=== PATIENT | male | born 1990 | race Two or more races ===

== ENCOUNTER 2017-02-02 17:52 | Emergency (ER) | payer MEDICAID ==
[2017-02-02 18:03] VITALS: BP 126/66; PULSE 58; RESP 18; TEMP 99; O2SAT 96
[2017-02-02] MEDS ORDERED: IBUPROFEN 200 MG TAB PO ONE (18:32)
--- NOTE | 2017-02-02 18:34 | UCPHY ---
H & P Time Seen by Provider: 02/02/17 18:25 Patient Type: Established HPI/ROS: This patient reports left lower tooth pain to the back the mandible the steadily increased to the day to current 7/10 in intensity. He has not taken any medications for this prior to arrival. He reports is difficult to chew since the onset of the symptoms. No other associated symptoms. He is accompanied by his mother today. ROS: No fevers or chills. No other constitutional symptoms. No recent dental procedures. HEENT: No generalized headache. He denies any stiff neck. Neuro: No confusion. GI: No vomiting. 7 point ROS is otherwise negative. Past Medical/Surgical History: Psychiatric Smoking Status: Former smoker Physical Exam: Physical Exam Vital signs are normal. General: No acute distress HEENT: Atraumatic. There is very slight left cheek swelling adjacent to the affected area intraoral exam is notable for an impacted wisdom tooth that is starting to arrived in the left lower mandible with gingival swelling and trace purulent discharge with compression to the swollen gingiva but no inocente fluctuance is obvious. No submental swelling. No other abnormal intraoral findings are present. He maintains a Mallampati 1 airway. No dysphonia. Neck: Supple with no meningismus Eyes: Pupils equal and react to light. Extraocular motions are intact. Lungs: No respiratory distress. Cardiac: Brisk capillary refill is intact throughout. Skin: No rash or pallor. Neuro: Alert and oriented x3 with no sensorimotor deficits. Initial differential diagnosis: Infected wisdom tooth, dental abscess Constitutional: Initial Vital Signs Temperature (C) 37.2 C 02/02/17 17:59 Heart Rate 58 L 02/02/17 17:59 Respiratory Rate 18 02/02/17 17:59 Blood Pressure 126/66 H 02/02/17 17:59 O2 Sat (%) 96 02/02/17 17:59 O2 Delivery Mode Room Air Allergies/Adverse Reactions: No Known Allergies Allergy (Unverified 04/07/15 21:36) Home Medications: Medication Instructions Recorded Hydrocodone/APAP 5/325 [[place] 1 - 2 tab PO Q4PRN PRN #12 tab 02/02/17 5/325 (*)] Penicillin V Potassium [Penicillin 500 mg PO TID #30 02/02/17 VK] Topamax 02/02/17 MDM/Departure - MDM Medications Given: Discontinued Medications Ibuprofen (Motrin) 600 mg PO EDNOW ONE Stop: 02/02/17 18:33 Last Admin: 02/02/17 18:38 Dose: 600 mg ED Course/Re-evaluation: This patient appears clinically well despite his symptoms and findings. I think he will do well on oral antibiotics and counseled he is mother regarding this. No clinical findings to suggest Fito's angina or other complicating factors - Depart Disposition: Home, Routine, Self-Care Clinical Impression: Dental abscess Condition: Good Instructions: Dental Abscess (ED) Additional Instructions: Diagnosis: Dental abscess Plan: Your wisdom tooth is impacted with infection Take penicillin antibiotic Ibuprofen-600 mg per 6 hours and Tylenol or Vicodin as needed for pain control. No driving, alcohol or come Vicodin. Call a dentist or oral surgeon for further evaluation for sometime within the next 3-10 days. Go the emergency department for any significant worsening despite treatment plan Prescriptions: Hydrocodone/APAP 5/325 [[place] 5/325 (*)] 1 - 2 tab PO Q4PRN PRN #12 tab PRN Reason: Pain Penicillin V Potassium [Penicillin VK] 500 mg PO TID #30 Referrals: [facility],. [Primary Care Provider] - As per Instructions - PQRS PQRS Measurement: NA
== END 2017-02-02 18:40 | disposition home or self-care (01) ==
LOC: CED 17:52
DX: K04.7 Periapical abscess without sinus (principal)
CPT/HCPCS: 99214-PO; G0463-PO

== ENCOUNTER 2017-08-30 12:11 | Emergency (ER) | payer MEDICAID ==
[2017-08-30 12:26] VITALS: BP 133/80; PULSE 70; RESP 18; TEMP 98; O2SAT 97
--- NOTE | 2017-08-30 12:41 | EDPHY ---
H & P Time Seen by Provider: 08/30/17 12:27 HPI/ROS: This patient complains of a sore throat of moderate severity that worsens with swallowing for the past 3 days. He has associated nasal congestion. He reports low-grade subjective fevers. He has partial relief from over-the- counter analgesics and reports no other exacerbating factors. He drove himself here by private vehicle for evaluation of the symptoms. ROS: Constitutional no high fevers or chills. No fatigue. HEENT: No ear pain. Neuro: No headache Pulmonary: No pleuritic pain. No coughing or dyspnea Cardiovascular: No complaints GI: No vomiting Integumentary: No skin rash 7 point ROS is otherwise negative. Smoking Status: Former smoker Physical Exam: Physical Exam Vital signs are normal. General: No acute distress HEENT: Nose: Clear discharge bilaterally. No sinus tenderness to percussion. Ears: External canals and tympanic membranes are clear with no erythema or abnormal findings bilaterally. Oropharynx: Mild erythema to posterior pharynx. No exudates. No dysphonia. No drooling or stridor. Eyes: Pupils equal and react to light. Extraocular motions are intact. Neck: Supple with no meningismus. No lymphadenopathy Lungs: Clear to auscultation bilaterally with no rales, rhonchi or wheeze. No respiratory distress. Cardiac: Regular rate and rhythm with no murmur gallop or rub Skin: No rash or pallor. Neuro: Alert with no focal deficits noted. Initial differential diagnosis: Viral URI, viral pharyngitis, strep pharyngitis Constitutional: Initial Vital Signs Temperature (C) 36.6 C 08/30/17 12:20 Heart Rate 70 08/30/17 12:20 Respiratory Rate 18 08/30/17 12:20 Blood Pressure 133/80 H 08/30/17 12:20 O2 Sat (%) 97 08/30/17 12:20 O2 Delivery Mode Room Air Allergies/Adverse Reactions: No Known Allergies Allergy (Unverified 04/07/15 21:36) Home Medications: Medication Instructions Recorded Fluticasone Nasal [Flonase Nasal 2 sprays NASAL DAILY #1 mdi 08/30/17 [place] (RX)] MDM/Departure - MDM Diagnostics: Rapid strep is negative ED Course/Re-evaluation: I counseled this patient regarding viral pharyngitis and viral URI. No clinical evidence of sinusitis or other complicating factors. - Depart Disposition: Home, Routine, Self-Care Clinical Impression: Viral pharyngitis, Viral URI Condition: Good Instructions: Upper Respiratory Infection (ED) Additional Instructions: Diagnoses: 1. Viral upper respiratory infection 2. Viral pharyngitis Your rapid strep test is negative. Plan: Humidifier Ibuprofen Tylenol for discomfort as needed Flonase steroid nasal spray for nasal congestion as needed Quit smoking Return for any significant worsening despite treatment plan Prescriptions: Fluticasone Nasal [Flonase Nasal [place] (RX)] 2 sprays NASAL DAILY #1 mdi Referrals: [facility],. [Primary Care Provider] - As per Instructions
== END 2017-08-30 12:42 | disposition home or self-care (01) ==
LOC: CED 12:11
DX: J06.9 Acute upper respiratory infection, unspecified (principal); J02.8 Acute pharyngitis due to other specified organisms; B97.89 Other viral agents as the cause of diseases classified elsewhere; Z87.891 Personal history of nicotine dependence
CPT/HCPCS: 87880-PO